=== PATIENT | female | born 1945 | race Caucasian/White ===

== ENCOUNTER 2023-08-21 11:06 | Emergency (ER) | payer OTHER, SELFPAY ==
[2023-08-21 11:10] VITALS: BP 166/80
--- NOTE | 2023-08-21 11:13 | ED.GENMED ---
History of Present Illness
General
Chief Complaint: Fall
Time Seen by Provider: 08/21/23 11:13
Travel History
Have you had any contact with someone who has COVID-19?: No
Do you have any symptoms of coronavirus? Fever > 100 degrees, chills, cough, shortness of breath, sore throat, loss of taste or smell, muscle aches, or headache?: No
History of Present Illness
History of Present Illness:
HPI: Patient tripped and fell earlier today. She came in by ambulance. She is on aspirin. She has a laceration to the lateral aspect of the upper side of the left side of face. She denies any other injury.
EXAM:
GENERAL: Well appearing in no distress
CERVICAL SPINE: No midline c-spine tenderness with excellent AROM
HEAD: She has a hematoma lateral to the left orbit with an irregular 4 cm laceration which is V-shaped and fairly deep
CHEST: No chest wall tenderness, normal heart sounds
LUNGS: Equal lung sounds, no respiratory distress
ABDOMEN: No abdominal tenderness, no peritoneal signs
EXTREMITIES: Normal active range of motion however she does have chronically decreased active range of motion at the left hip, no tenderness
NEURO: Excellent strength all extremities, appropriate mental status, normal speech/language
ED COURSE:
11:30 AM: I initially evaluated patient
NUMBER AND COMPLEXITY OF PROBLEMS ADDRESSED AT THE ENCOUNTER
� Chronic conditions affecting care: High blood pressure, hyperlipidemia, history of ND, prediabetic, TIA
� Acute Exacerbation and/or Progression of Chronic Illness: This is an acute problem
� Differential Diagnosis includes: Facial laceration, minor head injury, concussion, intracranial hemorrhage
AMOUNT AND/OR COMPLEXITY OF DATA TO BE REVIEWED AND ANALYZED
� I performed an independent evaluation of and my interpretation is:
EKG:
CT: Brain CT shows no acute abnormality
X-rays:
Laboratory Studies:
Other:
� Review of other/old records: I reviewed records, the patient was admitted for TIA in 2021
� Clinical information was obtained by an independent historian:
� Prescriptions/Medications Considered but not given:
� Further testing considered but not performed:
RISK OF COMPLICATIONS AND/OR MORBIDITY OR MORTALITY OF PATIENT MANAGEMENT
� Social determinants of health affecting care: Lives at home
� Discussion with other providers:
� Escalation of care including admission/observation vs risk of discharge considered: Given patient's age along with head injury and being on platelet, will obtain CT imaging of the brain. She has no neck pain. Laceration was
cleaned and repaired.
Past History
Past History
ED Past Medical History: CAD, HTN and Hypercholesterolemia
ED Past Surgical History: Orthopedic
Social History
Personal:
Living: alone
Phy Exam
Physical Exam
Physical Exam:
See HPI
Course
Orders/Labs/Results
Orders:
Orders
08/21/23 11:33
CT Head W/o Iv Contrast Urgent
Comment:
Reason For Exam: trauma on aspirin
08/21/23 12:39
Tetanus/Diphth/Acelpertussis [Adacel] 0.5 ml IM .ONCE ONE
Vital Signs
Initial and Last Documented VS:
Initial Vital Signs
Temp Pulse Resp BP Pulse Ox
97.4 F 71 18 166/80 98
08/21/23 11:10 08/21/23 11:10 08/21/23 11:10 08/21/23 11:10 08/21/23 11:10
Last Documented Vital Signs
Temp Pulse Resp BP Pulse Ox
97.4 F 71 18 166/80 98
08/21/23 11:10 08/21/23 11:10 08/21/23 11:10 08/21/23 11:10 08/21/23 11:10
Procedures
Laceration Closure
Left Face:
Status of Wound: clean
Description of Wound Edges: ragged
Preparation: cleaned with saline
Anesthesia: 1% Lidocaine with epi
Revision/Debridement: routine- no revision
Type of Closure: single layer closure
Skin Closure Material: 5-0 prolene
Number of sutures: 11
*Critical Care Note
Total Time (30-74mins, 75-104mins- exclusive of procedures): Not Applicable
ED Attending Note
-
Portions of this chart may have been created with voice recognition software.� Occasional wrong word or��sound alike� substitutions may have occurred due to the inherent limitations of voice recognition software.
Discharge Plan
Departure
Prescriptions:
No Action
isosorbide mononitrate 30 MG tablet extended release 24 hr
30 mg PO DAILY
nitroglycerin 0.4 MG tablet, sublingual
0.4 mg sublingual PRN PRN (Reason: chest pain)
metoprolol tartrate 25 MG tablet
25 mg PO BID
acetaminophen 325 MG tablet
650 mg PO Q4HPRN PRN (Reason: for mild pain or fever >100.4F) Qty: 0 0RF
omeprazole 20 MG capsule,delayed release(DR/EC)
20 mg PO DAILY
aspirin 81 MG tablet,chewable
81 mg PO DAILY AT 0700
cholecalciferol (vitamin D3) [Vitamin D3] 1,000 UNIT capsule
2,000 unit PO DAILY
rosuvastatin 40 MG tablet
40 mg PO DAILY
ketoconazole 60 GM cream
15 gm TP DAILYPRN PRN (Reason: fungal rash thigh creases )
diclofenac sodium 100 MG tablet extended release 24 hr
100 mg PO DAILY
sertraline 50 MG tablet
50 mg PO HS
amlodipine 5 MG tablet
5 mg PO DAILY Qty: 30 0RF
Referrals:
Abad Zuñiga DO [Family Provider] -
Interventions
Interventions:
*Risk Screen - Suicide Last Done: 08/21/23 11:10
*General Assessment Last Done: 08/21/23 11:10
*Neglect/Abuse Screening Last Done: 08/21/23 11:10
ED-Musculoskeletal Assessment Last Done: 08/21/23 11:22
ED- Neurological Assessment Last Done: 08/21/23 11:22
ED-Skin Assessment Last Done: 08/21/23 11:22
[2023-08-21] MEDS: ADACEL 0.5 ML IM (13:22)
[2023-08-21 14:03] VITALS: BP 147/68
== END 2023-08-21 14:08 | disposition home or self-care (01) ==
LOC: EMR 11:06
PROVIDERS: EMERGENCY PHYSICIAN Emergency Medicine; FAMILY PHYSICIAN Student in an Organized Health Care Education/Training Program
DX: S01.81XA Laceration without foreign body of other part of head, initial encounter (principal); S00.12XA Contusion of left eyelid and periocular area, initial encounter; W01.0XXA Fall on same level from slipping, tripping and stumbling without subsequent striking against object, initial encounter; I10 Essential (primary) hypertension; R73.03 Prediabetes; E78.00 Pure hypercholesterolemia, unspecified; I25.10 Atherosclerotic heart disease of native coronary artery without angina pectoris; I25.2 Old myocardial infarction; Z86.73 Personal history of transient ischemic attack (TIA), and cerebral infarction without residual deficits; Z79.82 Long term (current) use of aspirin; Z88.8 Allergy status to other drugs, medicaments and biological substances
CPT/HCPCS: 99284; 12013; 90471; 70450; 90715

== ENCOUNTER → 2023-11-19 10:29 | Outpatient (REF) | payer OTHER, SELFPAY | LOC: HWWDC 10:29 | PROVIDERS: ATTENDING PHYSICIAN Student in an Organized Health Care Education/Training Program | DX: Z12.31 Encounter for screening mammogram for malignant neoplasm of breast (principal) | CPT/HCPCS: 77063; 77067 ==

== ENCOUNTER → 2024-01-27 12:41 | Outpatient (REF) | payer OTHER, SELFPAY | LOC: HWRCS 12:41 | PROVIDERS: ATTENDING PHYSICIAN Nurse Practitioner Gerontology; FAMILY PHYSICIAN Student in an Organized Health Care Education/Training Program | DX: R60.0 Localized edema (principal) | CPT/HCPCS: 93306 ==

== ENCOUNTER → 2024-03-01 09:25 | Outpatient (REF) | payer OTHER, SELFPAY | LOC: RAD 09:25 | PROVIDERS: ATTENDING PHYSICIAN Student in an Organized Health Care Education/Training Program | DX: M79.89 Other specified soft tissue disorders (principal) | CPT/HCPCS: 93970 ==

== ENCOUNTER → 2024-04-20 14:13 | Outpatient (REF) | payer OTHER, SELFPAY | LOC: HWRAD 14:13 | PROVIDERS: ATTENDING PHYSICIAN Student in an Organized Health Care Education/Training Program | DX: R06.02 Shortness of breath (principal) | CPT/HCPCS: 71046 ==

== ENCOUNTER → 2024-06-08 10:37 | Outpatient (REF) | payer OTHER, SELFPAY | LOC: HWRAD 10:37 | PROVIDERS: ATTENDING PHYSICIAN Student in an Organized Health Care Education/Training Program | DX: M81.0 Age-related osteoporosis without current pathological fracture (principal) | CPT/HCPCS: 77080 ==

== ENCOUNTER → 2025-02-10 09:18 | Outpatient (REF) | payer OTHER, SELFPAY | LOC: HWWDC 09:18 | PROVIDERS: ATTENDING PHYSICIAN Student in an Organized Health Care Education/Training Program | DX: Z12.31 Encounter for screening mammogram for malignant neoplasm of breast (principal) | CPT/HCPCS: 77063; 77067 ==